=== PATIENT | male | born 1965 | race Caucasian/White ===

== ENCOUNTER 2018-09-28 04:40 | Emergency (ER) | payer OTHER, MEDICAID ==
[~2018-09-28] VITALS: Ht 167.6 cm; Wt 95.6 kg
[2018-09-28 04:46] VITALS: BP 121/79; PULSE 97; RESP 16; Ht 167.6 cm; Wt 95.6 kg
[2018-09-28] MEDS ORDERED: morphine 4 MG/ML VIAL IM STA (05:03)
--- NOTE | 2018-09-28 05:11 | ERD ---
ER Documentation Chief Complaint Chief Complaint R hip pain after a fall 1 week ago HPI This is a 52-year-old male who presents to emergency department with complaints of right hip pain, scrotal pain after falling a week ago. Stated that he was at [facility], walking, tripped, fell on a splitting position hitting his scrotal area on the ground. Denies headache, head injury, loss of consciousness, dizziness, neck pain, neck stiffness, throat pain, difficulty swallowing, difficulty breathing lying flat, shoulder pain, chest pain, back pain, abdominal pain, nausea, vomiting, constipation, diarrhea, urinary symptoms, loss of bowel and bladder control, difficulty walking due to pain, numbness or tingling sensation, calf pain, recent travel, recent major surgery in the last 3 weeks, calf pain, recent long travel, recent exposure to any illness, recent antibiotic use in the last 3 months, fever, chills, seizures. Past medical history: Denies. Surgical history: Denies. Social: Denies smoking, use of alcoholic beverages, use of illegal drugs. ROS All systems reviewed and are negative except as per history of present illness. Medications Home Meds Active Scripts Metaxalone* (Skelaxin*) 800 Mg Tablet, 800 MG PO TID PRN for MUSCLE SPASMS, #20 TAB Prov:PASILABAN,KLAR F 09/28/18 Ibuprofen* (Motrin*) 800 Mg Tab, 800 MG PO Q6H PRN for PAIN AND OR ELEVATED TEMP, #30 TAB Prov:PASILABAN,KLAR F 09/28/18 Allergies Allergies: Coded Allergies: No Known Allergy (Verified , 09/28/18) PMhx/Soc History of Surgery: Yes (RT SHOULDER,JAW SX,APPENDIX) Anesthesia Reaction: No Hx Neurological Disorder: No Hx Respiratory Disorders: No Hx Cardiac Disorders: Yes (HTN) Hx Psychiatric Problems: No Hx Miscellaneous Medical Probl: No Hx Alcohol Use: Yes (OCCASIONAL) Hx Substance Use: Yes (MARIJUANA) Hx Tobacco Use: Yes Smoking Status: Current every day smoker Physical Exam Vitals Physical Exam Const: No acute distress Head: Atraumatic Eyes: Normal Conjunctiva ENT: Normal External Ears, Nose and Mouth. Neck: Full range of motion. No meningismus. Resp: Clear to auscultation bilaterally Cardio: Regular rate and rhythm, no murmurs Abd: Soft, non tender, non distended. Normal bowel sounds. No abdominal tenderness. : Scrotal area has tenderness to palpation without obvious swelling/discoloration. Penis is no signs of trauma. Bilateral inguinal areas no swelling/discoloration/tenderness. Skin: No petechiae or rashes Back: No midline or flank tenderness Ext: No cyanosis, or edema. Able to bear weight on left lower extremity. Able to bear weight on right lower extremity. Able to perform a squatting position. Bilateral hips are stable and unremarkable. Neur: Awake and alert. No neurovascular deficits. Psych: Normal Mood and Affect Results 24 hrs Laboratory Tests Test 09/28/18 06:31 Bedside Urine pH (LAB) 5.5 Bedside Urine Protein (LAB) Negative Bedside Urine Glucose (UA) Negative Bedside Urine Ketones (LAB) Trace Bedside Urine Blood Negative Bedside Urine Nitrite (LAB) Negative Bedside Urine Leukocyte Esterase (L Negative Current Medications Medications Dose Sig/Elroy Start Time Status Last (Trade) Ordered Route PRN Stop Time Admin Dose Reason Admin Morphine 4 mg ONCE STAT 09/28/18 DC 09/28/18 Sulfate IM 05:03 05:39 (morphine) 09/28/18 05:06 Procedures/MDM Diagnostic tests: Urinalysis: Reviewed. X-ray of bilateral hips: No evidence of acute fracture. Ultrasound of the scrotal/testicular area: No sonographic evidence for testicular torsion. Mild left-sided hydrocele. Treatment: Morphine IM. Re-evaluation: Denies hip pain, scrotal pain, groin pain. No swelling to bilateral inguinal area. Ambulatory with steady gait. Able to perform squat. No neurovascular deficit. No neurological deficit. Differential diagnosis I have low suspicion for testicular torsion, hip dislocation, hip fracture. Final diagnosis: Hip contusion. Prescription: Motrin. Skelaxin. Follow-up with PCP in the next 24-48 hours. Come back here in the emergency department for any new symptoms or any worsening symptoms. All questions and concerns were answered. Patient and family members verbalized understanding and agreed with plan of care. Hemodynamically stable on discharge. Departure Diagnosis: Primary Impression: Hip pain Additional Impressions: Scrotal pain Fall Condition: Stable Additional Instructions: Follow-up with PCP in the next 24-48 hours. Come back here in the emergency department for any new symptoms or any worsening symptoms. SUSAN ANGEL Sep 28, 2018 05:11
[2018-09-28] MEDS ORDERED: IBUP800T48 PO (06:24)
[2018-09-28] MEDS ORDERED: META-121 PO (06:24)
== END 2018-09-28 06:58 | disposition home or self-care (01) ==
LOC: FTE 04:40
DX: S70.01XA Contusion of right hip, initial encounter (principal); I10 Essential (primary) hypertension; F17.210 Nicotine dependence, cigarettes, uncomplicated; S30.94XA Unspecified superficial injury of scrotum and testes, initial encounter; W01.198A Fall on same level from slipping, tripping and stumbling with subsequent striking against other object, initial encounter; Y92.9 Unspecified place or not applicable
CPT/HCPCS: 73520; 76870; 81003; J2270; 96372